=== PATIENT | female | born 1970 | race Caucasian/White ===

== ENCOUNTER 2019-01-30 08:55 | Emergency (ER) | payer OTHER ==
[2019-01-30 09:05] VITALS: BP 145/91
--- NOTE | 2019-01-30 09:26 | UC ---
UC General HPI - HPI Summary HPI Summary: 48-year-old woman comes in with chief complaint of pain and swelling of her upper palate. This started 2 days ago. She had just eaten some pineapple and then she felt some pain and swelling in her upper palate. No difficulty swallowing or breathing. She has pain in the upper posterior molars bilaterally also. Denies any dental cavities. Has not had any runny nose. Does have an occipital headache. Denies any neck pain. Does feel like maybe her glands are swollen in her anterior neck. The headache is mild at this time. 2 days ago when this started she did have some sweats. No fevers measured. She has not seen any ulcerations or canker sores in her throat or mouth. She's had this happen to her before but usually just lasts about an hour and then goes away. No known allergies. - History of Current Complaint Chief Complaint: UCGeneralIllness Stated Complaint: TOOTH ACHE, HEADACHE, AND EAR ACHE Time Seen by Provider: 01/30/19 08:58 Hx Last Menstrual Period: 02/17/16 Pain Intensity: 6 - Allergy/Home Medications Allergies/Adverse Reactions: Allergies Allergy/AdvReac Type Severity Reaction Status Date / Time No Known Allergies Allergy Verified 01/30/19 09:05 Home Medications: Home Medications LevoCETirizine TAB (NF) [Xyzal TAB (NF)] 5 mg PO DAILY 01/30/19 [History Confirmed 01/30/19] Methylphenidate HCl [Methylphenidate ER] 54 mg PO DAILY 01/30/19 [History Confirmed 01/30/19] Omeprazole 40 mg PO DAILY 01/30/19 [History Confirmed 01/30/19] PMH/Surg Hx/FS Hx/Imm Hx Previously Healthy: Yes GI/ History: Gastroesophageal Reflux - Surgical History Surgical History: Yes Surgery Procedure, Year, and Place: TUBAL 1994 - Family History Known Family History: Positive: None Negative: Blood Disorder, Other - [place] JO[facility] - Social History Alcohol Use: Daily Alcohol Amount: 2 beers Substance Use Type: None Smoking Status (MU): Former Smoker Review of Systems All Other Systems Reviewed And Are Negative: Yes Constitutional: Positive: Other - SEE HPI Skin: Positive: Negative Eyes: Positive: Negative ENT: Positive: Other - SEE HPI Respiratory: Positive: Negative Cardiovascular: Positive: Negative Gastrointestinal: Positive: Negative Motor: Positive: Negative Neurovascular: Positive: Negative Musculoskeletal: Positive: Negative Neurological: Positive: Headache Psychological: Positive: Negative Is Patient Immunocompromised?: No Physical Exam Triage Information Reviewed: Yes Appearance: Well-Appearing, No Pain Distress, Well-Nourished Vital Signs: Initial Vital Signs Temp 98.8 F 01/30/19 09:00 Pulse 78 01/30/19 09:00 Resp 20 01/30/19 09:00 BP 145/91 01/30/19 09:00 Pulse Ox 100 01/30/19 09:00 Vital Signs Reviewed: Yes Eye Exam: Normal Eyes: Positive: Conjunctiva Clear ENT: Positive: TMs normal, Uvula midline, Other - The palate is slightly swollen and erythematous. The swelling is symmetric. I do not appreciate any ulcerations. Posterior pharynx is open uvula midline.. Negative: Nasal congestion, Nasal drainage, Muffled voice, Hoarse voice Neck: Positive: Supple Respiratory: Positive: Lungs clear, Normal breath sounds, No respiratory distress Cardiovascular: Positive: RRR Musculoskeletal Exam: Normal Musculoskeletal: Positive: Strength Intact, ROM Intact Neurological Exam: Normal Neurological: Positive: Alert, Muscle Tone Normal Psychological Exam: Normal Psychological: Positive: Age Appropriate Behavior Skin Exam: Normal Course/Dx - Course Course Of Treatment: Because of the swelling of the palate is not clear at this time. Initially swelling started right after she ate pineapple so therefore a localized allergic reaction is a possibility. We'll treat with prednisone 40 mg a day for 3 days for that possibility. Other concerns would be an infection. Going to treat with Augmentin for the possibility of a bacterial infection. If it's a viral infection there are no ulcers or other signs of viral infection however that should improve on its own. Patient has no airway compromise at this time is swallowing well. She is afebrile here. Headache is mild. I did let her know if this got worse all she needed further evaluation emergency Department. - Diagnoses Provider Diagnosis: Palate abnormality Discharge - Sign-Out/Discharge Documenting (check all that apply): Patient Departure All imaging exams completed and their final reports reviewed: No Studies - Discharge Plan Condition: Stable Disposition: HOME Prescriptions: Amoxicillin/Clavulanate TAB* [Augmentin TAB 875*] 875 mg PO BID #20 tab predniSONE TAB* [Deltasone 20 MG TAB*] 40 mg PO DAILY #6 tab Patient Education Materials: Pharyngitis (ED) Referrals: Tashi Kowalski MD [Primary Care Provider] - Additional Instructions: FOLLOW UP WITH YOUR DOCTOR IF NOT COMPLETELY IMPROVED. GO TO THE EMERGENCY DEPARTMENT IF YOUR CONDITION WORSENS; FEVER, DIFFICULTY SWALLOWING OR BREATHING, YOU FEEL ILL OR ANY QUESTIONS OR CONCERNS. - Billing Disposition and Condition Condition: STABLE Disposition: Home
== END 2019-01-30 09:30 | disposition home or self-care (01) ==
LOC: UCEAST 08:55
DX: K13.79 Other lesions of oral mucosa (principal); K08.89 Other specified disorders of teeth and supporting structures; R51 Headache; Z87.891 Personal history of nicotine dependence
CPT/HCPCS: 99212; G0463

== ENCOUNTER 2019-01-31 10:50 | Emergency (ER) | payer OTHER ==
[2019-01-31 12:50] LABS: ABS Eosinophils 0.1 10^3/ul (0-0.6); ABS Lymphocytes 1.8 10^3/ul (1.0-4.8); ABS Monocytes 0.6 10^3/ul (0-0.8); ABS Neutrophils 4.2 10^3/ul (1.5-7.7); Eosinophil % 1.2 %; Hematocrit 35 % (35-47); Hemoglobin 12.1 g/dL (12.0-16.0); Lymphocyte % 27.2 %; Mean Corpuscular HGB Conc 34 g/dL (31-36); Mean Corpuscular Hemoglobin 31 pg (27-31); Mean Corpuscular Volume 91 fL (80-97); Mean Platelet Volume 7.4 fL (7.4-10.4); Platelet Count 327 10^3/uL (150-450); Red Blood Count 3.87 10^6 /uL (3.70-4.87); Red Cell Distribution Width 14 % (10-15); White Blood Count 6.7 10^3/uL (3.5-10.8)
--- NOTE | 2019-01-31 12:52 | ED ---
Complex/Multi-Sys Presentation - HPI Summary HPI Summary: This patient is a 48 year old F presenting to [facility] with a complaint of pain in the roof of her mouth that has been intermittently occurring. Pt went to Urgent Care on 01/30/19 for treatment for this issue, was seen by Dr. Rolon and started on Augmentin (for possible infection) and prednisone for possible allergic reaction. Pt has had 2 doses of the Augmentin, and did not take any this am. Pt reports she still feels consistent pain and swelling in the roof of the mouth, the pain radiates to molars and eyes. Pt further describes feeling as if her mouth cramped up and like the grooves on her mouth had been raised . Before it occurred on 01/28/18 she was eating fruits such as pineapple. However she mentions in a separate similar episode she was eating granola. Pt reports that during similar experiences previously, the pain eventually subsided. Pt has had no bleeding or pus in her mouth. Pt saw a dentist last week and there were no problems with her teeth. Pt also had an x-ray last week of all of her teeth (Panorex). Pt also hasnt felt well for 3-4 days and is worried about her liver functions because she drinks alcohol more than she feels she should, and has had B12 low in past. Pt reports previously having either a CT or MRI on which a spot on the liver was found. Pt regularly drinks alcohol, on an average day she drinks between 4-8 drinks. She mostly drinks beer , spiked seltzer, and wine. Once in a while she will have vodka. Pt reports that she has not had alcohol detox before, and that she hasnt missed work due to alcohol consumption. She denies runny nose, fever, ulcerations or canker sores, dysuria, hematuria, vomiting. She reports intermittent LERMA, diaphoresis, fatigue, tenderness in LUQ abd, chills occurring today, upper back pain, elevated blood pressure, yellowish/brown diarrhea but previously had dark brown stool. Pt previously had STD work up after finding out about a cheating partner , and she found out that she was positive for herpes, but didnt have any sores. She took the prescribed prednisone and prescribed Augmentin yesterday, and she alternated ibuprofen and Tylenol until 20:30-21:30, but she has not taken any medications today. Pt has a PMHx of peptic ulcers. Pts PCP is Dr. Kowalski. Per triage, patient rates the pain 8/10 in severity. Vital signs while in room: HR 84 bpm, BP 152/91, O2 sat 98% Home Medications Medication Instructions Recorded Confirmed Type Acetaminophen TAB* [Tylenol TAB*] 650 mg PO Q4H PRN 04/01/15 01/31/19 History buPROPion HCl [Wellbutrin Sr] 300 mg PO EVERY OTHER DAY 04/01/15 01/31/19 History buPROPion SR TAB* [Wellbutrin SR 150 mg PO EVERY OTHER DAY 04/01/15 01/31/19 History TAB*] Amoxicillin/Clavulanate TAB* 875 mg PO BID #20 tab 01/30/19 01/31/19 Rx [Augmentin TAB 875*] LevoCETirizine TAB (NF) [Xyzal TAB 5 mg PO DAILY 01/30/19 01/31/19 History (NF)] Methylphenidate HCl 54 mg PO DAILY 01/30/19 01/31/19 History [Methylphenidate ER] Omeprazole 40 mg PO DAILY 01/30/19 01/31/19 History predniSONE TAB* [Deltasone 20 MG 40 mg PO DAILY #6 tab 01/30/19 01/31/19 Rx TAB*] HYDROcodone/ACETAMIN 5-325 MG* 1 tab PO Q4H PRN #18 tab MDD 6 01/31/19 Rx [[place] 5-325 TAB*] - History Of Current Complaint Chief Complaint: EDGeneral Time Seen by Provider: 01/31/19 11:06 Hx Obtained From: Patient Onset/Duration: Lasting Days - 01/28/19, Still Present Timing: Constant Severity Currently: Severe - pain scale : 8/10 Severity Initially: Severe Location: Pain At: - back of mouth, Radiates To: - molars, and eyes Aggravating Factor(s): Certain foods Alleviating Factor(s): Nothing Associated Signs And Symptoms: Positive: Headache, Diarrhea, Abdominal Pain, Back Pain, Diaphoresis, Other - Neg - ulcerations, canker sores Pos - chills. Negative: Vomiting, Dysuria, Hematemesis, Fever - Allergies/Home Medications Allergies/Adverse Reactions: Allergies Allergy/AdvReac Type Severity Reaction Status Date / Time No Known Allergies Allergy Verified 01/31/19 10:56 PMH/Surg Hx/FS Hx/Imm Hx Previously Healthy: No Endocrine/Hematology History: Denies: Hx Diabetes, Hx Thyroid Disease Cardiovascular History: Denies: Hx Hypertension, Hx Pacemaker/ICD Respiratory History: Denies: Hx Asthma, Hx Chronic Obstructive Pulmonary Disease (COPD) GI History: Reports: Hx Ulcer History: Denies: Hx Dialysis, Hx Renal Disease Musculoskeletal History: Reports: Hx Scoliosis Sensory History: Denies: Hx Hearing Aid Neurological History: Denies: Hx Headaches, Other Neuro Impairments/Disorders Psychiatric History: Reports: Hx Substance Abuse - alcohol Denies: Hx Panic Disorder - Cancer History Hx Chemotherapy: No Hx Radiation Therapy: No - Surgical History Surgery Procedure, Year, and Place: 1994 Infectious Disease History: No Infectious Disease History: Denies: Hx Hepatitis, Hx Human Immunodeficiency Virus (HIV), Traveled Outside the [place] in Last 30 Days - Family History Known Family History: Negative: Blood Disorder, Other - Social History Occupation: Employed Full-time Alcohol Use: Daily Alcohol Amount: 4-8 per day Hx Substance Use: No Substance Use Type: Reports: None Smoking Status (MU): Former Smoker Review of Systems Positive: Chills, Fatigue, Skin Diaphoresis. Negative: Fever ENT: Other - Pos - pain in roof of mouth Neg - ulcerations, canker sores Negative: Nasal Discharge Cardiovascular: Negative Respiratory: Negative Positive: Abdominal Pain - LUQ, epigastric , Diarrhea. Negative: Vomiting Positive: burning. Negative: dysuria, hematuria Positive: Other - Pos - upper back pain Skin: Negative Positive: Headache Psychological: Normal All Other Systems Reviewed And Are Negative: Yes Physical Exam - Summary Physical Exam Summary: Appearance: well-appearing, moderate pain distress, well-nourished Skin: Warm, color reflects adequate perfusion, dry, no spider angiomata or stigmata of alcoholism Head: Normal Head/Face inspection, atraumatic Eyes: Conjunctiva clear ENT: Normal inspection, No exam findings to correlate with pt's degree of pain. There are 1 mm slightly raised areas bilaterally on the sides of the hard palate , midway to the posterior pharynx. These areas are firm, not red, not fluctuant , but exquisitely tender and pt indicates these are the areas of pain when they are touched. No ulcerations noted in these areas. Pt is tender from side to side of the entire roof of her mouth, from raised are to raised area. There is no dental caries, no gingival swelling, no percussion tenderness of the teeth, the posterior pharynx is clear, tonsils are not enlarged, there is no exudate, the uvula is midline and not swollen. Neck: Supple, no nodes, no JVD Respiratory: Lungs clear, normal breath sounds, no respiratory distress Cardio: RRR, No murmur, pulses normal, brisk capillary refill Abdomen: Soft, Tender epigastric area and LUQ quadrant, no hepatosplenomegaly, no masses, nondistended, no CVAT Bowel sounds: Present Musculoskeletal: Strength Intact/ROM intact, no calf tenderness, no edema. Psychological: Normal Neuro: Alert, muscle tone normal, no focal deficit Triage Information Reviewed: Yes Vital Signs On Initial Exam: Initial Vitals Temp Pulse Resp BP Pulse Ox 98.6 F 87 16 159/104 99 01/31/19 10:52 01/31/19 10:52 01/31/19 10:52 01/31/19 10:52 01/31/19 10:52 Vital Signs Reviewed: Yes Diagnostics - Vital Signs Vital Signs Temp Pulse Resp BP Pulse Ox 01/31/19 11:31 98.5 F 01/31/19 11:10 72 99 01/31/19 11:08 69 162/93 98 01/31/19 10:52 98.6 F 87 16 159/104 99 - Laboratory Lab Results: Lab Results 01/31/19 Range/Units 12:35 WBC 6.7 (3.5-10.8) 10^3/uL RBC 3.87 (3.70-4.87) 10^6 /uL Hgb 12.1 (12.0-16.0) g/dL Hct 35 (35-47) % MCV 91 (80-97) fL MCH 31 (27-31) pg MCHC 34 (31-36) g/dL RDW 14 (10-15) % Plt Count 327 (150-450) 10^3/uL MPV 7.4 (7.4-10.4) fL Neut % (Auto) 62.6 % Lymph % (Auto) 27.2 % [place] % (Auto) 8.5 % Eos % (Auto) 1.2 % Baso % (Auto) 0.5 % Absolute Neuts (auto) 4.2 (1.5-7.7) 10^3/ul Absolute Lymphs (auto) 1.8 (1.0-4.8) 10^3/ul Absolute Monos (auto) 0.6 (0-0.8) 10^3/ul Absolute Eos (auto) 0.1 (0-0.6) 10^3/ul Absolute Basos (auto) 0.0 (0-0.2) 10^3/ul Absolute Nucleated RBC 0.0 10^3/ul Nucleated RBC % 0.0 Result Diagrams: 01/31/19 12:35 01/31/19 12:35 Lab Statement: Any lab studies that have been ordered have been reviewed, and results considered in the medical decision making process. Re-Evaluation - Re-Evaluation First Eval Re-Evaluation Time: 13:40 Change: Unchanged Comment: Discussed lab results and no definite diagnosis for the pain in her hard palate. Advised her to continue the medications. Advised her that we have sent testing for Herpes Simplex and Herpes Zoster in the blood and on the culture taken from her hard palate. Complex Multi-Symp Course/Dx Course Of Treatment: 48 yo F with chief complaint of continued pain across her mid hard palate with swelling, with no improvement after 2 doses of Augmentin and one dose of prednisone. Pt is also concerned about her liver function tests because she has been drinking alcohol more heavily lately, and she has LUQ pain with hx of peptic ulcer. She also c/o pain in her upper back and wonders if she has a UTI. Pt had a nml physical exam except for 1 mm slightly raised areas bilaterally mid palate, no redness, no open areas, not fluctuant, tender across whole top of palate, and tender epigastric and LUQ quadrant. Blood work obtained. The abnormalities include AST is 53, and Total Protein is 6.0. Her wbc count and CRP are normal. Her ALT and T bili and coags and platelets are normal. Her alcohol level is zero. UA obtained. The abnormalities include Ur Specific [place] 1.008, and no sign of infection. Discussed results and plan to discharge with patient. Patient was agreeable with plan. Pt medications reviewed this visit. She is advised to continue the Augmentin and prednisone as directed. Nurses notes reviewed. Allergies noted. High blood pressure noted. Patient was discharged. - Diagnoses Provider Diagnoses: Stomatitis, Elevated blood pressure reading without diagnosis of hypertension, Epigastric pain, Elevated transaminase level, Alcohol abuse, Palate abnormality , Upper back pain Discharge - Sign-Out/Discharge Documenting (check all that apply): Patient Departure - Discharge Patient Received Moderate/Deep Sedation with Procedure: No - Discharge Plan Condition: Stable Disposition: HOME Prescriptions: HYDROcodone/ACETAMIN 5-325 MG* [[place] 5-325 TAB*] 1 tab PO Q4H PRN #18 tab MDD 6 PRN Reason: Severe Pain Patient Education Materials: Hypertension (ED), Epigastric Pain (ED), Alcohol Use Disorder (ED), Gingivostomatitis (ED) Referrals: Shade Bernal DO [Doctor of Osteopathy] - As Soon As Possible Tashi Kowalski MD [Primary Care Provider] - 5 Days Additional Instructions: We did not find a definite cause of your pain in your hard palate today. Dr. Ying recommends that you continue the Augmentin and the prednisone as directed. Please call Dr. Ying before 10pm today to learn the results of your B12, alcohol and urine tests. Continue the omeprazole for your upper abdominal pain. Dr. Ying has also referred you to the GI service so that you can be further evaluated for a possible ulcer. You should also continue to avoid ibuprofen. There is no ER test for an ulcer, so please do continue to follow up with Dr. Kwoalski and GI for this pain. We have prescribe hydrocodone/ acetaminophen that you may take for severe pain. Also follow up with Dr. Kowalski for you blood pressure which was elevated here in the ER. Your liver enzyme that is associated with drinking too much alcohol is elevated. Normal is 39, yours was 52. This is not terribly elevated, but you will want to stop drinking alcohol. Have definite follow up with Dr. Kowalski within a week. Also contact GI to get an appointment as soon as they can see you, but not emergency. - Billing Disposition and Condition Condition: STABLE Disposition: Home - Attestation Statements Document Initiated by Scribe: Yes Documenting Scribe: Lorraine Jaquez Provider For Whom Faithibe is Documenting (Include Credential): Dr. Tiffanie Ying MD Scribe Attestation: Lorraine Mckenna scribed for Dr. Tiffanie Ying MD on 02/01/19 at 2118. Scribe Documentation Reviewed: Yes Provider Attestation: The documentation as recorded by the scribe, Lorraine Jaquez accurately reflects the service I personally performed and the decisions made by me, Dr. Tiffanie Ying MD Status of Scribe Document: Viewed
[2019-01-31 13:10] LABS: ALT 42 U/L (7-52); AST 53 U/L (13-39); Albumin 3.7 g/dL (3.2-5.2); Albumin/Globulin Ratio 1.6 (1-3); Alkaline Phosphatase 46 U/L (34-104); Anion Gap 6 mmol/L (2-11); BUN/Creatinine Ratio 11.5 (8-20); Blood Urea Nitrogen 7 mg/dL (6-24); C Reactive Protein 2.35 mg/L (<8.01); CO2 Carbon Dioxide 26 mmol/L (22-32); Calcium 9.2 mg/dL (8.6-10.3); Chloride 107 mmol/L (101-111); EGFR African American 126.7 (>60); EGFR Non-African American 104.7 (>60); Globulin 2.3 g/dL (2-4); Glucose 90 mg/dL (70-100); Potassium 3.5 mmol/L (3.5-5.0); Sodium 139 mmol/L (135-145)
[2019-01-31 13:44] LABS: Urine Appearance Clear; Urine Bilirubin Negative (Negative); Urine Blood Negative (Negative); Urine Color Yellow; Urine Glucose Negative (Negative); Urine Ketones Negative (Negative); Urine Nitrite Negative (Negative); Urine Protein Negative (Negative); Urine Specific Gravity 1.008 (1.010-1.030); Urine Urobilinogen Negative (Negative)
[2019-01-31 13:56] VITALS: BP 167/98
[2019-01-31 14:00] LABS: Alcohol < 10 mg/dL (<10)
[2019-02-03 13:05] LABS: Herpes Simplex Virus I IgG AB Positive (Negative); Herpes Simplex Virus II IgG AB Negative (Negative)
[2019-02-04 23:26] LABS: Varicella Zoster Result Negative (Negative)
== END 2019-01-31 13:59 | disposition home or self-care (01) ==
LOC: ED 10:50
DX: K12.1 Other forms of stomatitis (principal); R03.0 Elevated blood-pressure reading, without diagnosis of hypertension; R10.13 Epigastric pain; R74.0 Nonspecific elevation of levels of transaminase and lactic acid dehydrogenase [LDH]; F10.10 Alcohol abuse, uncomplicated; Q38.5 Congenital malformations of palate, not elsewhere classified; M54.9 Dorsalgia, unspecified; Z87.891 Personal history of nicotine dependence; Z79.899 Other long term (current) drug therapy
CPT/HCPCS: 36415; 80053; 80320; 81003; 82607; 85025; 86140; 86694; 86695; 86696; 87529; 87798; 99282; G0480